=== PATIENT | female | born 1935 | race Caucasian/White ===

== ENCOUNTER 2022-02-03 19:39 | Inpatient (IN) | payer OTHER, SELFPAY ==
[2022-02-03 20:08] LABS: #Eosinphils 0.1 thou/uL (0.0-0.7); #Lymphocytes 1.6 thou/uL (1.20-3.40); #Monocytes 0.6 thou/uL (0.11-0.59); #Neutrophils 4.2 thou/uL (1.40-6.50); %Basophils 0.5 % (0.0-1.0); %Eosinophils 2.1 % (0.0-10.0); %Lymphocytes 24.1 % (21.0-51.0); %Monocytes 9.1 % (0.0-10.0); %Neutrophils 64.3 % (42.0-75.0); Hemoglobin 13.3 g/dL (12.0-16.0); Mean Corpuscular HGB CONC 32.8 g/dL (32.0-36.0); Mean Corpuscular Volume 91.4 fL (78.0-98.0); Mean Platelet Volume 6.9 fL (7.4-10.4); Platelet Count 299 thou/uL (130-400); RBC Distribution Width 11.2 % (11.5-14.5); Red Blood Cell (RBC) Count 4.45 mill/uL (4.20-5.40); White Blood Cell (WBC) Count 6.5 thou/uL (4.8-10.8)
[2022-02-03] MEDS ORDERED: Ondansetron PF 4 MG/2 ML Vial ONE (20:09)
[2022-02-03 20:18] LABS: Prothrombin Time 12.8 sec (12.0-14.7)
[2022-02-03 20:19] LABS: PTT 30.3 sec (22.9-36.1)
[2022-02-03 20:48] LABS: ALT (SGPT) 32 U/L (8-55); AST (SGOT) 25 U/L (5-34); Albumin 4.3 g/dL (3.4-4.8); Alkaline Phosphatase 85 U/L (40-110); Anion Gap 15 mmol/L (10-20); BUN (Urea Nitrogen) 13 mg/dL (9.8-20.1); Bilirubin, Total 0.8 mg/dL (0.2-1.2); CK (CPK) 95 U/L (29-168); Calc. Creatinine Clearance 0 mL/min (70-130); Calcium 9.5 mg/dL (7.8-10.44); Carbon Dioxide 23 mmol/L (23-31); Chloride 100 mmol/L (98-107); Globulin 3.1 g/dL (2.4-3.5); Glucose 141 mg/dL (83-110); Potassium 3.6 mmol/L (3.5-5.1); Protein, Total 7.4 g/dL (5.8-8.1); Sodium 134 mmol/L (136-145)
[2022-02-03] MEDS ORDERED: hydrALAZINE 20 MG/ML VIAL SLOW IVP PRN (22:25)
[2022-02-03] MEDS ORDERED: Ondansetron PF 4 MG/2 ML Vial IVP PRN (22:25)
[2022-02-03] MEDS ORDERED: Acetaminophen 325 MG TAB PO PRN (22:25)
[2022-02-03] MEDS ORDERED: Guaifenesin DM 100-10/5 ML UDCUP PO PRN (22:25)
[2022-02-03] MEDS ORDERED: Bisacodyl 5 MG TAB PO PRN (22:25)
[2022-02-03] MEDS ORDERED: Ketorolac Tromethamine 30 MG/ML VIAL IVP SCH (22:30)
[2022-02-03] MEDS ORDERED: Sodium Chloride 0.9% 1,000 ML IV SCH (22:30)
[2022-02-03] MEDS ORDERED: Aspirin Chewable 81 MG TAB ONE (22:59)
[2022-02-03 23:33] LABS: Troponin I 0.013 ng/mL (< 0.028)
[2022-02-03] MEDS ORDERED: cefTRIAXone\\ROCEPHIN 2 GM in Sodium Chloride 0.9% 100 ML IVPB SCH (23:59)
[2022-02-04 02:06] LABS: #Basophils 0.1 thou/uL (0.0-0.2); #Lymphocytes 1.1 thou/uL (1.20-3.40); #Monocytes 0.6 thou/uL (0.11-0.59); #Neutrophils 5.6 thou/uL (1.40-6.50); %Basophils 0.7 % (0.0-1.0); %Eosinophils 0.5 % (0.0-10.0); %Lymphocytes 14.8 % (21.0-51.0); %Monocytes 7.8 % (0.0-10.0); %Neutrophils 76.2 % (42.0-75.0); Hemoglobin 11.9 g/dL (12.0-16.0); Mean Corpuscular HGB CONC 33.7 g/dL (32.0-36.0); Mean Corpuscular Hemoglobin 30.5 pg (27.0-31.0); Mean Corpuscular Volume 90.6 fL (78.0-98.0); Mean Platelet Volume 6.7 fL (7.4-10.4); Platelet Count 244 thou/uL (130-400); RBC Distribution Width 11.1 % (11.5-14.5); White Blood Cell (WBC) Count 7.3 thou/uL (4.8-10.8)
[2022-02-04 02:23] LABS: Bacteria/HPF None Seen HPF (None Seen); Bilirubin Negative (Negative); Blood, Urine Negative (Negative); Clarity Clear (Clear); Glucose, Urine (Dipstick) Normal (Negative); Ketone, Urine Negative (Negative); Leukocyte Negative Leu/uL (Negative); Nitrite Negative (Negative); Protein, Urine (Dipstick) Negative (Neg-Trace); RBC/HPF 0-3 HPF (0-3); Squamous Epithelial None Seen HPF (0-3); Urobilinogen Normal mg/dL (Less than 2); WBC/HPF 0-3 HPF (0-3); pH, Urine 6.5 (5.0-9.0)
[2022-02-04 02:25] LABS: Specific Gravity, Urine 1.044 (1.002-1.036)
[2022-02-04 02:36] LABS: Troponin I 0.013 ng/mL (< 0.028)
[2022-02-04 02:37] VITALS: BMI 26.3
[2022-02-04 02:48] LABS: ALT (SGPT) 27 U/L (8-55); AST (SGOT) 18 U/L (5-34); Albumin 3.6 g/dL (3.4-4.8); Alkaline Phosphatase 70 U/L (40-110); Anion Gap 12 mmol/L (10-20); BUN (Urea Nitrogen) 10 mg/dL (9.8-20.1); Bilirubin, Total 0.7 mg/dL (0.2-1.2); Calc. Creatinine Clearance 64 mL/min (70-130); Calcium 8.6 mg/dL (7.8-10.44); Carbon Dioxide 23 mmol/L (23-31); Cardiac Risk 3.1 (Less than 4.5); Chloride 102 mmol/L (98-107); Cholesterol 133 mg/dl (< 200 Desired); Globulin 2.6 g/dL (2.4-3.5); Glucose 114 mg/dL (83-110); HDL Cholesterol 43 mg/dL (>60 Neg Risk); LDL Cholesterol, Calculated 80 mg/dL; Protein, Total 6.2 g/dL (5.8-8.1); Sodium 133 mmol/L (136-145); Triglycerides 52 mg/dL (Less than 150)
[2022-02-04] MEDS ORDERED: Sodium Chloride 0.9% 250 ML IV SCH (05:15)
[2022-02-04] MEDS: Sodium Chloride 0.9% 1,000 ML IV SCH ×2 (05:21→13:52)
[2022-02-04] MEDS ORDERED: Sodium Chloride 0.9% 500 ML IVPB SCH (06:30)
[2022-02-04] MEDS: Aspirin 81 mg Enteric Coated Tablet PO SCH (08:49)
[2022-02-04] MEDS: Famotidine 20 MG TAB PO SCH ×2 (08:49→20:32)
[2022-02-04] MEDS: Zinc Sulfate 220 MG CAP PO SCH (08:50)
[2022-02-04] MEDS: Enoxaparin Sodium 40 MG/0.4 ML SYRINGE SC SCH (08:50)
[2022-02-04] MEDS ORDERED: Cosyntropin 250 MCG VIAL SLOW IVP SCH (12:15)
[2022-02-04 12:34] LABS: SARS-CoV-2 PCR NAA for Saliva Not Detected (NotDetected)
[2022-02-04] MEDS ORDERED: Atorvastatin Calcium 40 MG TAB PO SCH (21:00)
[2022-02-05] MEDS: Sodium Chloride 0.9% 1,000 ML IV SCH (04:15)
[2022-02-05 04:58] LABS: #Eosinphils 0.1 thou/uL (0.0-0.7); #Lymphocytes 1.6 thou/uL (1.20-3.40); #Monocytes 0.5 thou/uL (0.11-0.59); #Neutrophils 2.5 thou/uL (1.40-6.50); %Basophils 0.4 % (0.0-1.0); %Eosinophils 1.9 % (0.0-10.0); %Lymphocytes 34.3 % (21.0-51.0); %Monocytes 10.2 % (0.0-10.0); %Neutrophils 53.2 % (42.0-75.0); Hemoglobin 10.8 g/dL (12.0-16.0); Mean Corpuscular HGB CONC 32.8 g/dL (32.0-36.0); Mean Corpuscular Hemoglobin 30.4 pg (27.0-31.0); Mean Corpuscular Volume 92.6 fL (78.0-98.0); Mean Platelet Volume 6.8 fL (7.4-10.4); Platelet Count 214 thou/uL (130-400); RBC Distribution Width 11.2 % (11.5-14.5); Red Blood Cell (RBC) Count 3.55 mill/uL (4.20-5.40); White Blood Cell (WBC) Count 4.6 thou/uL (4.8-10.8)
[2022-02-05 05:12] LABS: Anion Gap 10 mmol/L (10-20); BUN (Urea Nitrogen) 8 mg/dL (9.8-20.1); Calc. Creatinine Clearance 64 mL/min (70-130); Calcium 8.4 mg/dL (7.8-10.44); Carbon Dioxide 25 mmol/L (23-31); Chloride 108 mmol/L (98-107); Glucose 96 mg/dL (83-110); Potassium 3.8 mmol/L (3.5-5.1); Sodium 139 mmol/L (136-145)
[2022-02-05 08:28] VITALS: BP 139/78; TEMP 98.4
[2022-02-05] MEDS: Zinc Sulfate 220 MG CAP PO SCH (08:31)
[2022-02-05] MEDS: Famotidine 20 MG TAB PO SCH (08:31)
[2022-02-05] MEDS: Enoxaparin Sodium 40 MG/0.4 ML SYRINGE SC SCH (08:31)
[2022-02-05] MEDS: Aspirin 81 mg Enteric Coated Tablet PO SCH (08:31)
== END 2022-02-05 11:45 | disposition home or self-care (01) | DRG 193 ==
LOC: ERS 19:39 → NEURO 22:26
PROVIDERS: ADMIT Internal Medicine; ATTEND Internal Medicine
DX: J18.9 Pneumonia, unspecified organism (principal); G93.41 Metabolic encephalopathy; G45.9 Transient cerebral ischemic attack, unspecified; I65.21 Occlusion and stenosis of right carotid artery; Z20.822 Contact with and (suspected) exposure to COVID-19; E03.9 Hypothyroidism, unspecified; Z90.49 Acquired absence of other specified parts of digestive tract; Z98.890 Other specified postprocedural states; Z88.5 Allergy status to narcotic agent; Z88.8 Allergy status to other drugs, medicaments and biological substances; Z88.2 Allergy status to sulfonamides
CPT/HCPCS: 36415; 70450; 70496; 70498; 71045; 71250; 80048; 80053; 80061; 80400; 81001; 82550; 83880; 84443; 84484; 85025; 85610; 85730; 87040; 93005; 93306; 96374; J0696; J0834; J1650; J1956; J2405; J3490; J7030; J7050; U0003; U0005